=== PATIENT | male | born 1960 | race African-American/Black ===

== ENCOUNTER 2019-03-31 15:11 | Emergency (ER) | payer MEDICAID ==
[~2019-03-31] VITALS: Ht 172.7 cm; Wt 98.0 kg
[2019-03-31] MEDS ORDERED: IBUPROFEN 800MG TABLET PO ONE (16:30)
[2019-03-31] MEDS ORDERED: HYDROCODONE/APAP 7.5/325MG 1 TAB TABLET PO ONE (16:30)
[2019-03-31] MEDS ORDERED: LIDOCAINE 1%/EPI 1:100,000 10 ML VIAL IJ ONE (16:30)
[2019-03-31] MEDS ORDERED: BACITRACIN ZINC OINT UDPKT TOP ONE (16:30)
[2019-03-31] MEDS ORDERED: CEPHALEXIN 250MG CAPSULE PO ONE (16:30)
[2019-03-31] MEDS ORDERED: BACITRACIN 15GM TUBE TOP SCH (18:00)
[2019-03-31] MEDS ORDERED: LIDOCAINE HCL/EPINEPHRINE 1%-EPI 1:100,000 20 ML VIAL INFIL SCH (18:00)
[2019-03-31 19:11] VITALS: BP 137/92
== END 2019-03-31 19:10 | disposition home or self-care (01) ==
LOC: ER 15:21
DX: S01.01XA Laceration without foreign body of scalp, initial encounter (principal); F17.210 Nicotine dependence, cigarettes, uncomplicated; Z71.6 Tobacco abuse counseling; Z87.11 Personal history of peptic ulcer disease; W22.8XXA Striking against or struck by other objects, initial encounter; Y93.89 Activity, other specified; Y92.018 Other place in single-family (private) house as the place of occurrence of the external cause
CPT/HCPCS: 12002; 70450; 99284; J3490; Z7610